=== PATIENT | female | born 1945 | race Caucasian/White ===

== ENCOUNTER 2022-09-08 20:55 | Emergency (ER) | payer OTHER, MEDICARE ==
[~2022-09-08] VITALS: Ht 170.2 cm; Wt 81.6 kg
[~2022-09-08 20:55] MED LIST: ALPR0.5T PO; CLON0.1T GT; CLOP75TA32 GT; DEXL60CA4 GT; GLIP5TAB13 GT; HYDR-3917 GT; LEVO150T GT; METO-442 GT; SACU1TAB GT; SERT100T GT
[2022-09-08 21:00] VITALS: BP_SYST 219
[2022-09-08] MEDS ORDERED: amLODIPine BESYLATE 10 MG TABLET PO ONE (23:00)
[2022-09-08 23:30] VITALS: BP_SYST 177
== END 2022-09-08 23:30 | disposition home or self-care (01) ==
LOC: SED 20:55
DX: I16.0 Hypertensive urgency (principal); R73.9 Hyperglycemia, unspecified; I10 Essential (primary) hypertension; Z79.899 Other long term (current) drug therapy
CPT/HCPCS: 99283

== ENCOUNTER 2022-10-17 12:57 | Inpatient (IN) | payer OTHER, MEDICARE ==
[~2022-10-17] VITALS: Ht 175.3 cm; Wt 68.0 kg
[~2022-10-17 12:57] MED LIST changes: +ATOR-1 PO; +CEFDINIR PO; +METO5TAB86 SL; +PANT40TA45 PO
[2022-10-17 13:08] VITALS: BP_SYST 166; PULSE 94; RESP 20; TEMP 97.9; O2SAT 97
[2022-10-17] MEDS ORDERED: ASPIRIN 300 MG/SUPP.RECT SUPP RC ONE (13:15)
[2022-10-17 13:39] LABS: EOSINOPHILS # (AUTO) 0.2 K/uL (0.0-0.4); EOSINOPHILS % (AUTO) 2.3 % (0.0-4.0); HEMATOCRIT 36.8 % (36-48); HEMOGLOBIN 12.1 g/dL (12.0-16.0); LYMPHOCYTES % (AUTO) 15.5 % (20.5-51.5); MEAN CORPUSCULAR HEMOGLOBIN 28 pg (27-31); MEAN CORPUSCULAR HGB CONC 33 % (32-36); MEAN CORPUSCULAR VOLUME 86 fL (79.0-98.0); MONOCYTES # (AUTO) 0.6 K/uL (0.0-1.0); MONOCYTES % (AUTO) 8.3 % (1.7-9.3); NEUTROPHILS % (AUTO) 71.3 % (40.0-70.0); PLATELET COUNT (AUTO) 191 K/uL (130-430); RED BLOOD CELL COUNT(AUTO) 4.28 MIL/uL (4.2-6.2); RED CELL DISTRIBUTION WIDTH 13.9 % (9.0-15.0); WHITE BLOOD COUNT (AUTO) 6.7 K/uL (4.8-10.8)
[2022-10-17 13:49] LABS: BASOPHILS % (AUTO) 1.6 % (0.0-2.0)
[2022-10-17 13:50] LABS: BASOPHILS # (AUTO) 0.1 K/uL (0.0-0.2); NEUTROPHILS # (AUTO) 4.8 K/uL (1.8-7.7)
[2022-10-17 13:54] LABS: ANION GAP 6 (5-15); CALCIUM 8.5 mg/dL (8.4-11.0); CHLORIDE 102 mmol/L (98-107); GLUCOSE 125 mg/dL (70-99); UREA NITROGEN, BLOOD 15 mg/dL (8-21)
[2022-10-17 14:13] LABS: ALANINE AMINOTRANSFERASE 22 U/L (12-78); ALBUMIN 3.1 g/dL (3.4-4.8); ASPARTATE AMINOTRANSFERASE 23 U/L (10-37); TOTAL BILIRUBIN 0.7 mg/dL (0.0-1.0)
[2022-10-17] MEDS ORDERED: MORPHINE 2 MG/ML INJ. SYRINGE IVP ONE (14:45)
[2022-10-17] MEDS ORDERED: ASPIRIN 325 MG TABLET PO ONE (14:45)
[2022-10-17] MEDS ORDERED: LORazepam 1 MG TABLET PO ONE (14:45)
[2022-10-17] MEDS ORDERED: POTASSIUM CHLORIDE 20 MEQ TAB.PRT.SR PO ONE (15:45)
[2022-10-17 16:12] LABS: PHOSPHORUS 3.8 mg/dL (2.7-4.5)
[2022-10-17] MEDS ORDERED: ONDA-8 PO (17:21)
[2022-10-17] MEDS ORDERED: LOPE2CAP PO (17:27)
[2022-10-17] MEDS ORDERED: LOSA50TA28 PO (17:27)
[2022-10-17 18:11] VITALS: BP_SYST 140; PULSE 85; RESP 20; TEMP 97.2
[2022-10-17 18:52] VITALS: O2SAT 100
[2022-10-17 18:55] VITALS: BP_SYST 134; PULSE 75; RESP 20; TEMP 98.2; O2SAT 98
[2022-10-17 19:45] VITALS: O2SAT 99
[2022-10-17 20:00] VITALS: BP_SYST 143; PULSE 96; RESP 20; TEMP 97.3; O2SAT 99
[2022-10-17] MEDS ORDERED: NALOXONE HCL 0.4 MG/ML AMP (NARCAN) IVP PRN ×2 (20:15)
[2022-10-17] MEDS ORDERED: HYDROcodone/ACETAMIN 5-325 MG TAB (NORCO/ VICODIN) PO PRN ×2 (20:15)
[2022-10-17] MEDS ORDERED: ACETAMINOPHEN 325 MG TABLET PO PRN ×2 (20:15→20:30)
[2022-10-17] MEDS: SERTRALINE HCL 50 MG TABLET PO SCH (21:08)
[2022-10-17] MEDS: SACUBITRIL/VALSARTAN 24 MG-26 MG 1 TABLET PO SCH (21:08)
[2022-10-17] MEDS: ATORVASTATIN 20 MG TABLET PO SCH (21:08)
[2022-10-17] MEDS: METOPROLOL TARTRATE 50 MG TABLET PO SCH (21:08)
[2022-10-17] MEDS: NORMAL SALINE 5 ML DISP.SYRIN IVF SCH (21:09)
[2022-10-17] MEDS: cloNIDine HCL 0.1 MG TABLET PO SCH (21:09)
[2022-10-17] MEDS ORDERED: NORMAL SALINE 5 ML DISP.SYRIN IVF SCH (22:00)
[2022-10-18 00:10] VITALS: BP_SYST 148; PULSE 78; RESP 18; TEMP 96.7; O2SAT 97
[2022-10-18 05:27] LABS: BASOPHILS # (AUTO) 0.3 K/uL (0.0-0.2); BASOPHILS % (AUTO) 4.3 % (0.0-2.0); EOSINOPHILS # (AUTO) 0.4 K/uL (0.0-0.4); EOSINOPHILS % (AUTO) 5.7 % (0.0-4.0); HEMATOCRIT 33.4 % (36-48); HEMOGLOBIN 11.1 g/dL (12.0-16.0); LYMPHOCYTES # (AUTO) 0.9 K/uL (1.0-5.5); LYMPHOCYTES % (AUTO) 14.5 % (20.5-51.5); MEAN CORPUSCULAR HEMOGLOBIN 28 pg (27-31); MEAN CORPUSCULAR HGB CONC 33 % (32-36); MEAN CORPUSCULAR VOLUME 86 fL (79.0-98.0); MONOCYTES # (AUTO) 0.6 K/uL (0.0-1.0); MONOCYTES % (AUTO) 10.1 % (1.7-9.3); NEUTROPHILS # (AUTO) 4.1 K/uL (1.8-7.7); NEUTROPHILS % (AUTO) 65.4 % (40.0-70.0); PLATELET COUNT (AUTO) 180 K/uL (130-430); RED CELL DISTRIBUTION WIDTH 14.2 % (9.0-15.0); WHITE BLOOD COUNT (AUTO) 6.2 K/uL (4.8-10.8)
[2022-10-18] MEDS: LEVOTHYROXINE SODIUM 0.15 MG TABLET PO SCH (06:00)
[2022-10-18] MEDS: NORMAL SALINE 5 ML DISP.SYRIN IVF SCH ×3 (06:00→20:56)
[2022-10-18 06:03] LABS: ALANINE AMINOTRANSFERASE 25 U/L (12-78); ALBUMIN 2.7 g/dL (3.4-4.8); ANION GAP 6 (5-15); ASPARTATE AMINOTRANSFERASE 25 U/L (10-37); CALCIUM 8.2 mg/dL (8.4-11.0); CHLORIDE 105 mmol/L (98-107); CHOLESTEROL 83 mg/dL (<200); CREATININE 1.38 mg/dL (0.55-1.30); GLUCOSE 103 mg/dL (70-99); HDL CHOLESTEROL 50 mg/dL (>55); PHOSPHORUS 4.4 mg/dL (2.7-4.5); TOTAL BILIRUBIN 0.6 mg/dL (0.0-1.0); TRIGLYCERIDES 51 mg/dL (30-150); UREA NITROGEN, BLOOD 18 mg/dL (8-21)
[2022-10-18 08:00] VITALS: BP_SYST 171; PULSE 80; RESP 18; TEMP 97.1; O2SAT 97; O2SAT 98
[2022-10-18] MEDS: cloNIDine HCL 0.1 MG TABLET PO SCH ×2 (08:34→20:55)
[2022-10-18] MEDS: SACUBITRIL/VALSARTAN 24 MG-26 MG 1 TABLET PO SCH ×2 (08:34→20:55)
[2022-10-18] MEDS: METOPROLOL TARTRATE 50 MG TABLET PO SCH ×2 (08:35→20:56)
[2022-10-18] MEDS: CLOPIDOGREL BISULFATE 75 MG TABLET PO SCH (08:35)
[2022-10-18] MEDS: PANTOPRAZOLE SODIUM 40 MG TAB PO SCH (08:35)
[2022-10-18] MEDS: SERTRALINE HCL 50 MG TABLET PO SCH ×2 (08:36→20:54)
[2022-10-18] MEDS ORDERED: LOSARTAN POTASSIUM 50 MG TABLET (COZAAR) PO SCH (09:00)
[2022-10-18 12:59] VITALS: BP_SYST 156; PULSE 73; RESP 14; TEMP 96.8; O2SAT 92
[2022-10-18 16:34] VITALS: BP_SYST 178; PULSE 82; RESP 18; TEMP 97.9; O2SAT 94
[2022-10-18] MEDS: INSULIN REGULAR, HUMAN 100 UNITS/ML, 3 ML VIAL (humuLIN R) SUBCUT PRN (18:07)
[2022-10-18 20:00] VITALS: BP_SYST 177; PULSE 89; RESP 17; TEMP 97.3; O2SAT 95
[2022-10-18] MEDS: ATORVASTATIN 20 MG TABLET PO SCH (20:55)
[2022-10-19] VITALS (8 sets, daily range): BP systolic 136–189; PULSE 66–89; RESP 17–20; TEMP 96.9–98.1; O2SAT 90–98
[2022-10-19 05:35] LABS: BASOPHILS # (AUTO) 0.2 K/uL (0.0-0.2); EOSINOPHILS # (AUTO) 0.1 K/uL (0.0-0.4); EOSINOPHILS % (AUTO) 1.9 % (0.0-4.0); HEMATOCRIT 37.2 % (36-48); HEMOGLOBIN 12.4 g/dL (12.0-16.0); LYMPHOCYTES # (AUTO) 0.9 K/uL (1.0-5.5); LYMPHOCYTES % (AUTO) 14.6 % (20.5-51.5); MEAN CORPUSCULAR HEMOGLOBIN 29 pg (27-31); MEAN CORPUSCULAR HGB CONC 33 % (32-36); MEAN CORPUSCULAR VOLUME 85 fL (79.0-98.0); MONOCYTES # (AUTO) 0.3 K/uL (0.0-1.0); MONOCYTES % (AUTO) 5.8 % (1.7-9.3); NEUTROPHILS # (AUTO) 4.5 K/uL (1.8-7.7); NEUTROPHILS % (AUTO) 74.7 % (40.0-70.0); PLATELET COUNT (AUTO) 196 K/uL (130-430); RED BLOOD CELL COUNT(AUTO) 4.36 MIL/uL (4.2-6.2); RED CELL DISTRIBUTION WIDTH 14.5 % (9.0-15.0); WHITE BLOOD COUNT (AUTO) 6.1 K/uL (4.8-10.8)
[2022-10-19 05:57] LABS: ALANINE AMINOTRANSFERASE 24 U/L (12-78); ALBUMIN 3.2 g/dL (3.4-4.8); ANION GAP 8 (5-15); ASPARTATE AMINOTRANSFERASE 25 U/L (10-37); CALCIUM 8.9 mg/dL (8.4-11.0); CHLORIDE 101 mmol/L (98-107); CREATININE 1.21 mg/dL (0.55-1.30); GLUCOSE 156 mg/dL (70-99); UREA NITROGEN, BLOOD 18 mg/dL (8-21)
[2022-10-19] MEDS: LEVOTHYROXINE SODIUM 0.15 MG TABLET PO SCH (06:13)
[2022-10-19] MEDS: NORMAL SALINE 5 ML DISP.SYRIN IVF SCH ×3 (06:13→22:00)
[2022-10-19] MEDS: SERTRALINE HCL 50 MG TABLET PO SCH ×2 (08:14→20:54)
[2022-10-19] MEDS: cloNIDine HCL 0.1 MG TABLET PO SCH ×2 (08:14→20:54)
[2022-10-19] MEDS: PANTOPRAZOLE SODIUM 40 MG TAB PO SCH (08:14)
[2022-10-19] MEDS: amLODIPine BESYLATE 10 MG TABLET PO SCH (08:15)
[2022-10-19] MEDS: CLOPIDOGREL BISULFATE 75 MG TABLET PO SCH (08:15)
[2022-10-19] MEDS: METOPROLOL TARTRATE 50 MG TABLET PO SCH ×2 (08:15→21:00)
[2022-10-19] MEDS: SACUBITRIL/VALSARTAN 24 MG-26 MG 1 TABLET PO SCH ×2 (08:17→20:59)
[2022-10-19] MEDS: ONDANSETRON 4 MG ODT TAB PO PRN (10:16)
[2022-10-19] MEDS: INSULIN REGULAR, HUMAN 100 UNITS/ML, 3 ML VIAL (humuLIN R) SUBCUT PRN (11:09)
[2022-10-19] MEDS ORDERED: LORazepam 2 MG/ML VIAL IVP ONE (18:00)
[2022-10-19] MEDS: ATORVASTATIN 20 MG TABLET PO SCH (20:54)
[2022-10-20] VITALS (7 sets, daily range): BP systolic 142–167; PULSE 64–75; RESP 17–24; TEMP 97.4–98.1; O2SAT 92–97
[2022-10-20] MEDS: NORMAL SALINE 5 ML DISP.SYRIN IVF SCH ×2 (06:06→14:00)
[2022-10-20 06:39] LABS: BASOPHILS # (AUTO) 0.2 K/uL (0.0-0.2); BASOPHILS % (AUTO) 2.9 % (0.0-2.0); EOSINOPHILS # (AUTO) 0.1 K/uL (0.0-0.4); EOSINOPHILS % (AUTO) 1.1 % (0.0-4.0); HEMATOCRIT 37.3 % (36-48); HEMOGLOBIN 12.5 g/dL (12.0-16.0); LYMPHOCYTES # (AUTO) 0.9 K/uL (1.0-5.5); LYMPHOCYTES % (AUTO) 13.9 % (20.5-51.5); MEAN CORPUSCULAR HEMOGLOBIN 29 pg (27-31); MEAN CORPUSCULAR HGB CONC 34 % (32-36); MEAN CORPUSCULAR VOLUME 85 fL (79.0-98.0); MONOCYTES # (AUTO) 0.4 K/uL (0.0-1.0); MONOCYTES % (AUTO) 6.2 % (1.7-9.3); NEUTROPHILS # (AUTO) 4.9 K/uL (1.8-7.7); NEUTROPHILS % (AUTO) 75.9 % (40.0-70.0); PLATELET COUNT (AUTO) 196 K/uL (130-430); RED BLOOD CELL COUNT(AUTO) 4.39 MIL/uL (4.2-6.2); RED CELL DISTRIBUTION WIDTH 14.2 % (9.0-15.0); WHITE BLOOD COUNT (AUTO) 6.5 K/uL (4.8-10.8)
[2022-10-20 06:54] LABS: ANION GAP 8 (5-15); CALCIUM 8.9 mg/dL (8.4-11.0); CHLORIDE 101 mmol/L (98-107); CREATININE 1.37 mg/dL (0.55-1.30); GLUCOSE 117 mg/dL (70-99); UREA NITROGEN, BLOOD 26 mg/dL (8-21)
[2022-10-20] MEDS: ONDANSETRON 4 MG ODT TAB PO PRN (07:55)
[2022-10-20] MEDS: SERTRALINE HCL 50 MG TABLET PO SCH (10:25)
[2022-10-20] MEDS ORDERED: METO-442 PO (10:38)
[2022-10-20] MEDS ORDERED: NOR10 PO (10:38)
[2022-10-20] MEDS: cloNIDine HCL 0.1 MG TABLET PO SCH (12:57)
[2022-10-20] MEDS: LEVOTHYROXINE SODIUM 0.15 MG TABLET PO SCH (12:57)
[2022-10-20] MEDS: METOPROLOL TARTRATE 50 MG TABLET PO SCH ×2 (12:58→14:57)
[2022-10-20] MEDS: PANTOPRAZOLE SODIUM 40 MG TAB PO SCH (12:58)
[2022-10-20] MEDS: SACUBITRIL/VALSARTAN 24 MG-26 MG 1 TABLET PO SCH (12:58)
[2022-10-20] MEDS: CLOPIDOGREL BISULFATE 75 MG TABLET PO SCH (12:58)
[2022-10-20] MEDS: amLODIPine BESYLATE 10 MG TABLET PO SCH (12:58)
== END 2022-10-20 18:53 | DRG 313 ==
LOC: SED 12:57 → STU 16:06 → SMU 10-19 19:34
PROVIDERS: ADMIT Preventive Medicine Preventive Medicine/Occupational Environmental Medicine; ATTEND Preventive Medicine Preventive Medicine/Occupational Environmental Medicine
DX: R07.89 Other chest pain (principal); F03.94 Unspecified dementia, unspecified severity, with anxiety; N17.9 Acute kidney failure, unspecified; R47.01 Aphasia; I69.354 Hemiplegia and hemiparesis following cerebral infarction affecting left non-dominant side; E87.6 Hypokalemia; E03.9 Hypothyroidism, unspecified; E11.65 Type 2 diabetes mellitus with hyperglycemia; I11.9 Hypertensive heart disease without heart failure; I25.10 Atherosclerotic heart disease of native coronary artery without angina pectoris; K76.0 Fatty (change of) liver, not elsewhere classified; R77.8 Other specified abnormalities of plasma proteins; K21.9 Gastro-esophageal reflux disease without esophagitis
CPT/HCPCS: 36415; 71045; 76700-TC; 80048; 80053; 80061; 83735; 83880; 84100; 84443; 84484; 85025; 87081; 87101; 93005; 96374; 99291; G0378; J1815; J2060; J2270; Q0162